=== PATIENT | male | born 1995 | race Caucasian/White ===

== ENCOUNTER 2017-08-08 19:03 | Emergency (ER) | payer BC ==
[~2017-08-08] VITALS: Ht 165.1 cm; Wt 63.0 kg
[2017-08-08 19:12] VITALS: TEMP 36.9; Ht 165.1 cm; Wt 63.0 kg
[2017-08-08] MEDS: SODIUM CHLORIDE 0.9% 1000ML 1,000 ML IV STA ×2 (21:07→22:57)
[2017-08-08] MEDS: ONDANSETRON INJ 2 MG/ML 2 ML VIAL IV STA (21:13)
[2017-08-08] MEDS: KETOROLAC TROMETHAMINE 30 MG/ML VIAL IV STA (21:13)
[2017-08-08 21:22] LABS: BASO % 0.2 %; BASO ABS # 0.01 K/uL (0-0.2); EOS % 8.4 %; EOS ABS # 0.36 K/uL (0-0.5); HEMATOCRIT 45.5 % (42-52); HEMOGLOBIN 16.2 g/dL (14.0-18.0); IG# 0.01 K/uL (0.00-0.02); LYMPH % 39.4 %; MEAN CELL VOLUME 84.1 fL (80-100); MEAN CORPUSCULAR HEMOGLOBIN 29.9 pg (25-34); MEAN CORPUSCULAR HGB CONC 35.6 g/dl (32-36); MEAN PLATELET VOLUME 9.9 fL (7.4-10.4); MONO % 12.1 %; MONO ABS # 0.52 K/uL (0.11-0.59); NEUT % 39.7 %; NEUT ABS # 1.71 K/uL (1.4-6.5); PLATELET COUNT 157 K/uL (130-400); RED CELL DISTRIBUTION WIDTH CV 12.1 % (11.5-14.5); WHITE BLOOD COUNT 4.31 K/uL (4.8-10.8)
--- NOTE | 2017-08-08 21:24 | DIAGNOSTIC IMAGING REPORT ---
CHEST ONE VIEW PORTABLE CLINICAL HISTORY: Atypical chest pain COMPARISON STUDY: No previous studies for comparison. FINDINGS: The cardiac and mediastinal contours are normal. There is no evidence of focal pulmonary consolidation. There is no evidence of failure. No pleural effusions are visualized.[ A linear air collection in the lower left paraspinal region, likely represents air within the distal esophagus. The examination is rotated. IMPRESSION: No active disease in the chest. Electronically signed by: Piol Joya M.D. 08/08/2017 9:23 PM Dictated Date/Time: 08/08/2017 9:21 PM
[2017-08-08] MEDS ORDERED: MULT-513 PO (21:32)
[2017-08-08] MEDS ORDERED: MOME200A INH (21:32)
[2017-08-08] MEDS ORDERED: VNTHFA/IN INH (21:32)
[2017-08-08 21:38] LABS: BLOOD UREA NITROGEN 12 mg/dl (7-18); CALCIUM 8.8 mg/dl (8.5-10.1); CARBON DIOXIDE 32 mmol/L (21-32); CREATININE 1.04 mg/dl (0.60-1.40); GLUCOSE 86 mg/dl (70-99); POTASSIUM 3.7 mmol/L (3.5-5.1); SODIUM 138 mmol/L (136-145)
[2017-08-08 21:54] LABS: CKMB 0.9 ng/ml (0.5-3.6)
[2017-08-08 23:13] VITALS: BP 130/75; PULSE 67; O2SAT 100
--- NOTE | 2017-08-09 01:02 | EMERGENCY ROOM VISIT NOTE ---
History Report prepared by Dhiraj: Fifi Pimentel Under the Supervision of: Dr. Cody Bunn D.O. First contact with patient: 20:46 Chief Complaint: CARDIAC ASSESSMENT Stated Complaint: CHEST TIGHTNESS Nursing Triage Summary: Patient reports right sided chest pain since noon today. Patient had vomiting and diarrhea all day sunday. Patient has been having trouble eating ever since. States "I'm not sure if this is all related." History of Present Illness The patient is a 22 year old male who presents to the Emergency Room with complaints of constant right sided chest pain starting 1200 today. He states the pain is severe. It worsens with lying down, coughing, and taking a deep breath. 2 days ago he had some nausea, vomiting, and diarrhea. His roommate had similar symptoms last week. Those symptoms resolved and today he started having chest pain. Chest pain is located in the middle upper right side of his chest. It is a pleuritic pain. It is worse with breathing. It is sharp in nature. He has not been eating or drinking well over the past 2 days. He denies any rhinorrhea, sore throat, or rash. Patient denies diabetes, hypertension, hyperlipidemia, CAD, history of sudden at a young age, and smoking. Patient denies swelling of calves, recent trips, history of immobilization or recent surgery, prior history of DVT, hemoptysis, history of malignancy, or history of smoking. Source of History: patient Onset: 1200 Position: chest (right) Symptom Intensity: severe Quality: other (pain) Modifying Factors (Worsening): breathing (deeply), other (cough, lying down) Associated Symptoms: + nausea, + vomiting, + diarrhea, No sorethroat, No rash Review of Systems See HPI for pertinent positives & negatives. A total of 10 systems reviewed and were otherwise negative. Past Medical & Surgical Medical Problems: (1) Asthma Family History No family history of sudden at a young age. Social History Smoking Status: Never Smoker Housing Status: lives with roommate Current/Historical Medications Scheduled Mometasone Furoate-Formoterol (Dulera 200/5 Mcg), 2 PUFFS INH BID Multivitamins/Minerals (Mvi With Minerals), 1 TAB PO DAILY Scheduled PRN Albuterol Hfa (Ventolin Hfa), 2 PUFFS INH Q6H PRN for SOB/Wheezing Allergies Coded Allergies: Penicillins (Verified Adverse Reaction, Intermediate, RASH, 08/08/17) Physical Exam Vital Signs Date Time Temp Pulse Resp B/P (MAP) Pulse Ox O2 Delivery O2 Flow Rate FiO2 08/08/17 23:13 67 18 130/75 100 Room Air 08/08/17 21:07 72 08/08/17 21:07 75 16 140/85 98 Room Air 08/08/17 19:12 36.9 83 18 129/74 99 Room Air Physical Exam GENERAL: Sitting up in bed, alert, well appearing, well nourished, no distress, non-toxic EYE EXAM: normal conjunctiva. OROPHARYNX: no exudate, no erythema, lips, buccal mucosa, and tongue normal and mucous membranes are moist NECK: supple, no nuchal rigidity, no adenopathy, non-tender CHEST: No rash/reproducible anterior chest wall pain LUNGS: Clear to auscultation. Normal chest wall mechanics HEART: no murmurs, S1 normal and S2 normal ABDOMEN: abdomen soft, non-tender, normo-active bowel sounds, no masses, no rebound or guarding. BACK: Back is symmetrical on inspection and there is no deformity, no midline tenderness, no CVA tenderness. UPPER EXTREMITIES: upper extremities are grossly normal. LOWER EXTREMITIES: No pitting edema. Calves equal bilaterally. NEURO EXAM: Normal sensorium, cranial nerves II-XII grossly intact, normal speech, no gross weakness of arms, no gross weakness of legs. Medical Decision & Procedures ER Provider Diagnostic Interpretation: Xray results as stated below per my and the radiologist's interpretation: CHEST ONE VIEW PORTABLE CLINICAL HISTORY: Atypical chest pain COMPARISON STUDY: No previous studies for comparison. FINDINGS: The cardiac and mediastinal contours are normal. There is no evidence of focal pulmonary consolidation. There is no evidence of failure. No pleural effusions are visualized.[ A linear air collection in the lower left paraspinal region, likely represents air within the distal esophagus. The examination is rotated. IMPRESSION: No active disease in the chest. Electronically signed by: Pilo Joya M.D. 08/08/2017 9:23 PM Dictated Date/Time: 08/08/2017 9:21 PM Laboratory Results 08/08/17 21:04 Red Blood Count 5.41, Mean Corpuscular Volume 84.1, Mean Corpuscular Hemoglobin 29.9, Mean Corpuscular Hemoglobin Concent 35.6, Mean Platelet Volume 9.9, Neutrophils (%) (Auto) 39.7, Lymphocytes (%) (Auto) 39.4, Monocytes (%) (Auto) 12.1, Eosinophils (%) (Auto) 8.4, Basophils (%) (Auto) 0.2, Neutrophils # (Auto ) 1.71, Lymphocytes # (Auto) 1.70, Monocytes # (Auto) 0.52, Eosinophils # (Auto ) 0.36, Basophils # (Auto) 0.01 08/08/17 21:04 Test 08/08/17 21:04 White Blood Count 4.31 K/uL (4.8-10.8) Red Blood Count 5.41 M/uL (4.7-6.1) Hemoglobin 16.2 g/dL (14.0-18.0) Hematocrit 45.5 % (42-52) Mean Corpuscular Volume 84.1 fL (80-100) Mean Corpuscular Hemoglobin 29.9 pg (25-34) Mean Corpuscular Hemoglobin Concent 35.6 g/dl (32-36) Platelet Count 157 K/uL (130-400) Mean Platelet Volume 9.9 fL (7.4-10.4) Neutrophils (%) (Auto) 39.7 % Lymphocytes (%) (Auto) 39.4 % Monocytes (%) (Auto) 12.1 % Eosinophils (%) (Auto) 8.4 % Basophils (%) (Auto) 0.2 % Neutrophils # (Auto) 1.71 K/uL (1.4-6.5) Lymphocytes # (Auto) 1.70 K/uL (1.2-3.4) Monocytes # (Auto) 0.52 K/uL (0.11-0.59) Eosinophils # (Auto) 0.36 K/uL (0-0.5) Basophils # (Auto) 0.01 K/uL (0-0.2) RDW Standard Deviation 37.0 fL (36.4-46.3) RDW Coefficient of Variation 12.1 % (11.5-14.5) Immature Granulocyte % (Auto) 0.2 % Immature Granulocyte # (Auto) 0.01 K/uL (0.00-0.02) D-Dimer 330 ug/L FEU (0-500) Anion Gap 4.0 mmol/L (3-11) Est Creatinine Clear Calc Drug Dose 96.9 ml/min Estimated GFR () 117.6 Estimated GFR (Non- 101.4 BUN/Creatinine Ratio 11.5 (10-20) Calcium Level 8.8 mg/dl (8.5-10.1) Total Creatine Kinase 1343 U/L (39-308) Creatine Kinase MB 0.9 ng/ml (0.5-3.6) Creatine Kinase MB Ratio 0.1 (0-3.0) Troponin I < 0.015 ng/ml (0-0.045) Laboratory results per my review. Medications Administered Medications (Trade) Dose Ordered Sig/Stepan Route Start Time Stop Time Status Last Admin Dose Admin Sodium Chloride 1,000 ml @ 999 mls/hr Q1H1M STAT IV 08/08/17 20:53 08/08/17 21:53 DC 08/08/17 21:07 999 MLS/HR Ondansetron HCl (Zofran Inj) 4 mg NOW STAT IV 08/08/17 20:53 08/08/17 20:54 DC 08/08/17 21:13 4 MG Ketorolac Tromethamine (Toradol Inj) 30 mg NOW STAT IV 08/08/17 20:53 08/08/17 20:54 DC 08/08/17 21:13 30 MG Sodium Chloride 1,000 ml @ 999 mls/hr Q1H1M STAT IV 08/08/17 22:57 08/08/17 23:57 DC 08/08/17 22:57 999 MLS/HR ECG Per My Interpretation Indication: chest pain Rate (beats per minute): 76 Rhythm: sinus rhythm Findings: other (right axis, normal intervals, no PVC) ED Course ED COURSE: Vital signs were reviewed and showed hypertension. The patients medical record was reviewed The above diagnostic studies were performed and reviewed. ED treatments and interventions as stated above. 2046: The patient was evaluated in room A10. A complete history and physical examination was performed. 2052: Toradol Inj 30 mg IV, Zofran Inj 4 mg IV, NSS 1000 ml @ 999 mls/hr IV. 2256: NSS 1000 ml @ 999 mls/hr IV. 2310: Upon reevaluation, the patient is feeling better. I discussed my findings with the patient and he understands and agrees with the treatment plan. Based on the patients age, coexisting illnesses, exam and lab findings the decision to treat as an outpatient was made. The patient remained stable while under my care. The patient appeared well at the time of discharge. Medical Decision Differential diagnoses includes but is not limited to acute coronary syndrome, myocardial infarction, pericarditis, pulmonary embolus, aortic dissection, pneumonia, pneumothorax, musculoskeletal, shingles, esophageal. Patient is a 22-year-old male with no cardiac or PE risk factors that presents to ER for a pleuritic chest pain. Recently just got over a GI bug. His absolute no abdominal pain. He is able to eat and drink without difficulties at this time. CBC was unremarkable. BMP shows a slightly elevated CK at 1300. Troponin was negative. EKG and chest x-ray unremarkable. D-dimer negative. Patient was given 2 L normal saline. He was discharged follow-up with PCP as an outpatient. Symptoms did improve with Toradol. Discussed with Pt concerning signs and symptoms to watch out for. Pt was instructed to follow up with their PCP and discussed with the patient their option to return to the ED at anytime for persistent or worsening symptoms. The appropriate anticipatory guidance and out-patient management, including indications for return to the emergency department, were explained at length to the patient and understood. Medication Reconcilliation Current Medication List: was personally reviewed by me Blood Pressure Screening Patient's blood pressure: Elevated blood pressure Blood pressure disposition: Elevated BP felt to be situational Impression Primary Impression: Chest pain Additional Impression: Dehydration Scribe Attestation The scribe's documentation has been prepared under my direction and personally reviewed by me in its entirety. I confirm that the note above accurately reflects all work, treatment, procedures, and medical decision making performed by me. Departure Information Dispostion Home / Self-Care Forms IMPORTANT VISIT INFORMATION Patient Instructions Chest Pain - [facility], Pending Sale To [facility], ED Dehydration Additional Instructions Please follow up with your primary care doctor with in the next 24 hours. Any worsening of your symptoms, please return to the ED immediately. This includes any fevers greater than 100.4, worsening pain, chest pain, shortness breath, persistent nausea, vomiting, unable to eat or drink, or any other concerning signs or symptoms from your standpoint. Problem Qualifiers Primary Impression: Chest pain Chest pain type: unspecified Qualified Codes: R07.9 - Chest pain, unspecified
== END 2017-08-08 23:20 | disposition home or self-care (01) ==
LOC: C.EDB 19:05 → C.EDA 23:20
DX: R07.9 Chest pain, unspecified (principal); E86.0 Dehydration; J45.909 Unspecified asthma, uncomplicated; Z88.0 Allergy status to penicillin